=== PATIENT | male | born 2000 | race African-American/Black ===

== ENCOUNTER 2022-04-08 14:06 | Emergency (ER) | payer MEDICAID ==
[~2022-04-08] VITALS: Ht 182.9 cm; Wt 83.0 kg
[2022-04-08 14:26] VITALS: BP 131/67
[2022-04-08] MEDS ORDERED: LIDOCAINE HCL/EPINEPHRINE 1%-EPI 1:100,000 50 ML VIAL INFIL ONE (17:15)
[2022-04-08] MEDS ORDERED: TETANUS, DIPHTHERIA, PERTUSSIS VAC/PF 0.5ML (>10YR OLD) IM ONE (17:15)
== END 2022-04-08 21:03 | disposition home or self-care (01) ==
LOC: ER 14:27
DX: S51.812A Laceration without foreign body of left forearm, initial encounter (principal); X78.9XXA Intentional self-harm by unspecified sharp object, initial encounter; F33.9 Major depressive disorder, recurrent, unspecified; Z63.79 Other stressful life events affecting family and household; Y93.89 Activity, other specified; R03.0 Elevated blood-pressure reading, without diagnosis of hypertension; F84.0 Autistic disorder; Y92.018 Other place in single-family (private) house as the place of occurrence of the external cause
CPT/HCPCS: 12002; 90471; 90715; 99283

== ENCOUNTER 2022-04-20 07:47 | Emergency (ER) | payer MEDICAID ==
[~2022-04-20] VITALS: Ht 175.3 cm; Wt 70.0 kg
[2022-04-20 07:52] VITALS: BP 122/42
== END 2022-04-20 08:29 | disposition home or self-care (01) ==
LOC: ER 07:47
DX: Z48.02 Encounter for removal of sutures (principal)
CPT/HCPCS: 99281